=== PATIENT | male | born 1985 | race Caucasian/White ===

== ENCOUNTER → 2018-09-18 | Outpatient (CLI) | payer BC | LOC: M.RAD 09:09 | DX: M89.8X1 Other specified disorders of bone, shoulder (principal) ==

== ENCOUNTER → 2020-08-08 | Outpatient (CLI) | payer BC | LOC: M.LAB 17:01 | PROVIDERS: ATTEND Orthopaedic Surgery | DX: Z01.812 Encounter for preprocedural laboratory examination (principal); Z20.822 Contact with and (suspected) exposure to COVID-19 ==